=== PATIENT | female | born 1985 | race Caucasian/White ===

== ENCOUNTER 2016-08-10 07:45 | Inpatient (IN) | payer OTHER ==
[~2016-08-10] VITALS: Ht 157.5 cm; Wt 81.2 kg
[2016-08-10] MEDS ORDERED: RINGERS SOLUTION,LACTATED 1,000 ML IV ONE (08:47)
[2016-08-10] MEDS ORDERED: PREN1TAB80 PO (08:53)
[2016-08-10] MEDS ORDERED: TOPI25 PO (08:55)
[2016-08-10] MEDS ORDERED: AMPICILLIN SODIUM 2 GM/NS 100 ML IV ONE (09:00)
[2016-08-10] MEDS ORDERED: BETAMETHASONE SOLUSPAN 6 MG/ML 5 ML VIAL IM ONE (09:00)
[2016-08-10] MEDS ORDERED: METOCLOPRAMIDE HCL 5 MG/ML 2 ML VIAL IVP ONE (09:00)
[2016-08-10] MEDS ORDERED: CITRIC ACID/SODIUM CITRATE 30 ML SOLUTION UDCUP PO ONE (09:00)
[2016-08-10 09:17] VITALS: BP 132/91
[2016-08-10 10:27] LABS: BASOPHILS % (AUTO) 0.6 % (0.0-2.0); EOSINOPHILS % (AUTO) 1.1 % (1.0-6.0); HEMATOCRIT 42.7 % (36-46); HEMOGLOBIN 14.3 g/dL (12.0-16.0); LYMPHOCYTES # (AUTO) 1.9 K/uL (1.0-4.8); LYMPHOCYTES % (AUTO) 19.3 % (22.0-44.0); MEAN CORPUSCULAR HEMOGLOBIN 30.7 pg (26.0-34.0); MEAN CORPUSCULAR HGB CONC 33.4 G/dL (31.0-37.0); MEAN CORPUSCULAR VOLUME 92 fL (80-100); MONOCYTES # (AUTO) 0.8 K/uL (0.1-1.0); MONOCYTES % (AUTO) 8.4 % (2.0-9.0); NEUTROPHILS % (AUTO) 70.6 % (40.0-70.0); RED BLOOD CELL COUNT(AUTO) 4.64 MIL/uL (4.00-5.20); RED CELL DISTRIBUTION WIDTH 14.4 % (11.5-14.5)
[2016-08-10] MEDS ORDERED: OXYTOCIN 20 UNITS in RINGERS SOLUTION,LACTATED 1,000 ML IV ONE (10:29)
[2016-08-10] MEDS ORDERED: RINGERS SOLUTION,LACTATED 1,000 ML IV PRN (10:29)
[2016-08-10] MEDS ORDERED: OXYTOCIN 30 UNITS/LACT RINGERS 500 ML IV PRN (10:29)
[2016-08-10] MEDS ORDERED: OXYTOCIN 30 UNITS/LACT RINGERS 500 ML IV ONE (10:29)
[2016-08-10] MEDS ORDERED: RINGERS SOLUTION,LACTATED 1,000 ML IV SCH (10:29)
[2016-08-10] MEDS ORDERED: METHYLERGONOVINE MALEATE 0.2 MG/ML VIAL IM PRN (10:30)
[2016-08-10] MEDS ORDERED: LIDOCAINE HCL/PF 1% 30 ML VIAL INJ PRN (10:30)
[2016-08-10] MEDS ORDERED: CARBOPROST TROMETHAMINE 250 MCG/ML AMP IM PRN (10:30)
[2016-08-10 11:22] LABS: PROTHROMBIN TIME 10.7 SEC (9.4-11.6)
[2016-08-10] MEDS ORDERED: MethylPREDNISolone SOD SUCC 125 MG/2 ML VIAL IVP ONE (11:30)
[2016-08-10] MEDS ORDERED: KETOROLAC TROMETHAMINE 60 MG/2 ML VIAL IM ONE (12:00)
[2016-08-10] MEDS ORDERED: EPHEDrine SULFATE 50 MG/ML VIAL IM ONE (12:00)
[2016-08-10] MEDS ORDERED: ONDANSETRON HCL 4 MG/2 ML VIAL IVP ONE (12:00)
[2016-08-10] MEDS ORDERED: OXYTOCIN 10 UNITS/ML VIAL IM ONE (12:00)
[2016-08-10] MEDS ORDERED: DEXAMETHASONE SOD PHOS 4 MG/ML VIAL IVP ONE (12:00)
[2016-08-10] MEDS: AMPICILLIN SODIUM 1 GM/NS 50 ML IV SCH ×2 (13:18→17:20)
[2016-08-10] MEDS: FentaNYL CITRATE-PF 100 MCG/2 ML VIAL IVP PRN ×3 (16:34→17:44)
[2016-08-10] MEDS ORDERED: FentaNYL CITRATE-PF 100 MCG/2 ML VIAL IVP PRN ×2 (18:45)
[2016-08-10] MEDS ORDERED: MORPHINE SULFATE 4 MG/ML SYRINGE IVP PRN (18:45)
[2016-08-10] MEDS ORDERED: ONDANSETRON HCL 4 MG/2 ML VIAL IVP PRN ×2 (18:45)
[2016-08-10] MEDS ORDERED: DiphenhydrAMINE HCL 50 MG/ML VIAL IVP PRN ×2 (18:45)
[2016-08-10] MEDS ORDERED: MORPHINE SULFATE 2 MG/ML SYRINGE IVP PRN (18:45)
[2016-08-10] MEDS ORDERED: OXYTOCIN 20 UNITS in RINGERS SOLUTION,LACTATED 1,000 ML IV SCH (18:56)
[2016-08-10] MEDS ORDERED: GLYCERIN/WITCH HAZEL LEAF 40 PADS JAR TP PRN (19:00)
[2016-08-10] MEDS ORDERED: IBUPROFEN 600 MG TABLET PO PRN (19:00)
[2016-08-10] MEDS ORDERED: OxyCODONE HCL/ACETAMINOPHEN 5-325 MG TABLET PO PRN (19:00)
[2016-08-10] MEDS ORDERED: OXYGEN THERAPY IH SCH ×3 (20:00)
[2016-08-10] MEDS ORDERED: MIDAZOLAM HCL 2 MG/2 ML VIAL ONE (20:01)
[2016-08-10] MEDS ORDERED: FentaNYL CITRATE-PF 100 MCG/2 ML VIAL ONE (20:01)
[2016-08-10] MEDS ORDERED: MORPHINE SULFATE/PF 0.5 MG/ML 10 ML AMP ONE (20:01)
[2016-08-10] MEDS: DEXTROSE 5%-0.45% SODIUM CHL 1,000 ML IV SCH (21:29)
[2016-08-10] MEDS: NALBUPHINE HCL 10 MG/ML VIAL IVP PRN (23:07)
[2016-08-11] MEDS: KETOROLAC TROMETHAMINE 30 MG/ML VIAL IVP SCH ×3 (01:27→13:32)
[2016-08-11] MEDS: DEXTROSE 5%-0.45% SODIUM CHL 1,000 ML IV SCH ×2 (04:23→13:32)
[2016-08-11] MEDS: NALBUPHINE HCL 10 MG/ML VIAL IVP PRN (06:30)
[2016-08-11 07:02] LABS: EOSINOPHILS % (AUTO) 0.01 % (1.0-6.0); HEMATOCRIT 35.2 % (36-46); HEMOGLOBIN 12.1 g/dL (12.0-16.0); LYMPHOCYTES # (AUTO) 1.6 K/uL (1.0-4.8); LYMPHOCYTES % (AUTO) 6.4 % (22.0-44.0); MEAN CORPUSCULAR HEMOGLOBIN 31.5 pg (26.0-34.0); MEAN CORPUSCULAR HGB CONC 34.3 G/dL (31.0-37.0); MEAN CORPUSCULAR VOLUME 92 fL (80-100); MONOCYTES # (AUTO) 2.2 K/uL (0.1-1.0); MONOCYTES % (AUTO) 8.8 % (2.0-9.0); NEUTROPHILS # (AUTO) 20.9 K/uL (1.8-7.7); NEUTROPHILS % (AUTO) 84.8 % (40.0-70.0); RED BLOOD CELL COUNT(AUTO) 3.84 MIL/uL (4.00-5.20); WHITE BLOOD COUNT (AUTO) 24.7 K/uL (4.5-11.0)
[2016-08-11] MEDS: IBUPROFEN 800 MG TABLET PO SCH ×2 (18:12→23:35)
[2016-08-11] MEDS: MAGNESIUM HYDROXIDE SUSPENSION 30 ML UDCUP PO SCH (21:39)
[2016-08-12] MEDS: IBUPROFEN 800 MG TABLET PO SCH ×3 (05:54→18:06)
[2016-08-12] MEDS: OxyCODONE HCL/ACETAMINOPHEN 5-325 MG TABLET PO PRN ×2 (07:38→13:23)
[2016-08-12] MEDS: MAGNESIUM HYDROXIDE SUSPENSION 30 ML UDCUP PO SCH ×2 (08:32→21:16)
[2016-08-12] MEDS: RANITIDINE HCL 150 MG TABLET PO SCH ×2 (11:25→21:16)
[2016-08-13] MEDS: IBUPROFEN 800 MG TABLET PO SCH ×2 (00:13→06:49)
[2016-08-13] MEDS ORDERED: PERCT PO (11:57)
[2016-08-13] MEDS ORDERED: DSS100 PO (11:58)
[2016-08-13] MEDS ORDERED: IBUP-1547 PO (11:58)
== END 2016-08-13 12:45 | disposition home or self-care (01) | DRG 765 ==
LOC: 4S 07:45 → OBSVTOIN 07:45 → 4S 08-11 15:28
PROVIDERS: ADMIT Obstetrics & Gynecology; ATTEND Obstetrics & Gynecology
PROC: 10D00Z1 Extraction of Products of Conception, Low, Open Approach (ICD-10-PCS; principal; 2016-08-10)
DX: O42.92 Full-term premature rupture of membranes, unspecified as to length of time between rupture and onset of labor (principal); O30.003 Twin pregnancy, unspecified number of placenta and unspecified number of amniotic sacs, third trimester; O32.1XX1 Maternal care for breech presentation, fetus 1; Z3A.37 37 weeks gestation of pregnancy; Z37.2 Twins, both liveborn
CPT/HCPCS: 85049; 85384; 86850; 86900; 86901; 86920; 87081; 88307; J0290; J0690; J0702; J1100; J1885; J2250; J2274; J2300; J2405; J2590; J2765; J2930; J3010; J3490; J7120